=== PATIENT | male | born 1945 | race Caucasian/White ===

== ENCOUNTER 2017-11-11 09:41 | Day surgery (SDC) | payer MEDICARE ==
[2017-11-11 10:29] VITALS: BP 142/84; PULSE 77; RESP 16; TEMP 97.8; O2SAT 100
[2017-11-11 11:25] VITALS: BP 118/85; PULSE 78; RESP 18; O2SAT 96
[2017-11-11 11:40] VITALS: BP 157/93; PULSE 72; RESP 18; O2SAT 96
[2017-11-11] MEDS ORDERED: LIDOCAINE HCL 1% 20 ML VIAL ONE (12:22)
--- NOTE | 2017-11-11 14:24 | RADRPT ---
EXAM DATE/TIME: 11/11/2017 10:29 [place] COMPARISON: No previous studies available for comparison. INDICATIONS : Enlarged right neck mass/nodule. MEDICAL HISTORY : Enlarged right neck nodule. SURGICAL HISTORY : Appendectomy. Knee surgery. Bilateral hip surgery. Hernia repair. ENCOUNTER: Initial ACUITY: 1 month PAIN SCORE: 0/10 LOCATION: Right neck ORGAN: Right lymph node SPECIMENS: Two core specimen(s) submitted for pathologic evaluation. DEVICE: 18 gauge Temno needle Post procedure scanning reveals no hematoma or other complication. The possibility does exist that the tissue obtained will be non-diagnostic. If the sample is non-guicho gnostic a repeat biopsy or surgical biopsy may need to be performed. TECHNIQUE: 1. Ultrasound guidance for needle biopsy. 2. Needle biopsy. The risks, benefits and alternatives to the procedure were explained and verbal and written consent w as obtained. The site was prepped in sterile fashion. Full sterile technique was used, including ca p, mask, sterile gloves and gown and a large sterile sheet. Hand hygiene and 2% chlorhexidine and/or betadine/alcohol prep was utilized per protocol for cutaneous antisepsis. The skin and subcutaneous tissues were infiltrated with local anesthetic solution. Sterile gel and sterile probe cover were u tilized for ultrasound guidance. With the patient on the ultrasound table, images were obtained. A needle was advanced into the identified target and the number of specimens as above obtained and mckinley bmitted for pathologic evaluation. The patient tolerated the procedure well and left the ultrasound suite in stable condition. CONCLUSION: Uncomplicated ultrasound guided needle biopsy. Lukas Duarte MD on November 11, 2017 at 14:22 Board Certified Radiologist. This report was verified electronically.
== END 2017-11-11 12:00 | disposition home or self-care (01) ==
LOC: HRAD 09:41 → HRIP 09:44 → HRAD 12:00
PROVIDERS: ATTEND Surgery Trauma Surgery
DX: C80.1 Malignant (primary) neoplasm, unspecified (principal)
CPT/HCPCS: 38505; 76942; 87070; 87205; 88305; 88307

== ENCOUNTER → 2017-12-08 | Day surgery (SDC) | payer MEDICARE ==
[~2017-12-08] VITALS: Ht 177.8 cm; Wt 76.2 kg
[~2017-12-08] MED LIST: ASPI1TAB57 PO; ASPIRIN EC 81 MG TABEC PO SCH; CENTCHW3 PO; CHLORHEXIDINE GLUCONATE 2 % 1 PACK (2 CLOTHS) TOPICAL PRN; CHOLECALCIFEROL (VIT D3) 5000 UNIT CAP PO SCH; D 50CAP2 PO; DO NOT ADM ANY ANTICOAGULANT DRUGS PRN; ESMOLOL HCL 100 MG/10 ML VIAL IV ONE; GLYCOPYRROLATE 1 MG/5 ML SYRINGE IV PUSH ONE; LACTATED RINGER'S 1000 ML IV PRN; LIDOCAINE HCL 1% PF 5 ML SYRINGE OTHER ONE; METOPROLOL TARTRATE 25 MG TAB PO PRN; MIDAZOLAM HCL 2 MG/2 ML VIAL ONE; MULTIVITAMINS/MINERALS THERAPEUTIC TAB PO SCH; OMEP40CA2 PO; OXYMETAZOLINE HCL 0.05% 15 ML NASAL SPRAY ONE; PANTOPRAZOLE SOD 40 MG DELAYED RELEASE TAB PO SCH; PATIENT OWN MEDICATION: ZINC GLUCONATE 50MG TABLET PO SCH; POTA-255 PO; POTASSIUM GLUCONATE 600 MG PO SCH; POVIDONE IODINE 5% (ANTISEPSIS KIT) 4 APPLICATIONS EACH NARE PRN; PROPOFOL 200 MG/20 ML AMP IV ONE; SODIUM CHLORID 0.9% 500 ML IV PRN; SUCCINYLCHOLINE CHLORIDE 100 MG/5 ML SYRINGE IV PUSH ONE; VITA1000 PO; ZINC50TA2 PO
[2017-12-08 09:59] VITALS: BP 132/86; PULSE 63; RESP 18; TEMP 97.8; O2SAT 98
--- NOTE | 2017-12-08 15:43 | EKG ---
Date Performed: 12/08/2017 Time Performed: 07:11:17 PTAGE: 71 years EKG: Sinus rhythm NORMAL ECG NO PREVIOUS TRACING DOCTOR: Augusto Szymanski Interpretating Date/Time 12/08/2017 15:42:20
--- NOTE | 2017-12-16 08:47 | MP ---
cc: PATRICK ROMERO MD DATE OF SURGERY 12/08/2017 PREOPERATIVE DIAGNOSIS Right neck squamous cell carcinoma POSTOPERATIVE DIAGNOSIS Right neck squamous cell carcinoma PROCEDURE PERFORMED Direct laryngoscopy with biopsy. ANESTHESIA General endotracheal anesthesia was used. COMPLICATIONS None SPECIMEN Right base of tongue and tonsil biopsies. INDICATION FOR THE PROCEDURE This is a 71-year-old male with a newly diagnosed squamous cell carcinoma of the right neck deemed to require identification of the primary with direct laryngoscopy. The risks and benefits were described in detail. He understood and wished to proceed as planned. DESCRIPTION OF THE PROCEDURE After informed consent was obtained, the patient was taken to the operating room, placed supine on the operating room table. General endotracheal anesthesia was administered following which the head of the bed was turned approximately 90 degrees. The operative mouth gag and mouth gag were placed into the oral cavity. Once this completed, the Storz laryngoscope was inserted into the oral cavity. The oral cavity and oropharynx was investigated. There was a small ulceration in the area of the inferior tonsil on the right at the base of the tongue area. Biopsies were taken and sent for permanent section and pathology. Once this was completed, the remainder of the oropharynx, hypopharynx and endolarynx were examined. There were no further masses, lesions or ulcerations noted. Once this completed, this marked the end of the procedure. The patient had the operative dentition mouthguard removed. The patient was awoken, extubated and sent to the PACU in stable condition. Patrick Romero AT/DJL /4:38 PM /8:27 AM
== END | disposition home or self-care (01) ==
LOC: HSDC 06:04
PROVIDERS: ATTEND Otolaryngology
DX: C02.4 Malignant neoplasm of lingual tonsil (principal); R09.81 Nasal congestion; Z01.810 Encounter for preprocedural cardiovascular examination
CPT/HCPCS: 00320; 31535; 88305; 93005; J0330; J2250; J3010; J7120